=== PATIENT | male | born 1995 | race Caucasian/White ===

== ENCOUNTER 2017-09-14 13:44 | Emergency (ER) | payer BC ==
[2017-09-14 14:47] VITALS: BP 113/69
--- NOTE | 2017-09-14 15:17 | UC ---
Respiratory Complaint HPI - HPI Summary HPI Summary: 22 y/o male presents to the urgent care accompany by mother c/o productive cough w/ green phlegms for the past 9 days. Pt reports he has Hx of asthma and he has been using his inhaler since he started wheezing for the past 3 days. Pt had low grade fever at the beginning of symptoms. Lately he feels hot w / chills, but has not taken his temp. Pt denies SOTELO, rash, nasal congestion, SOB , chest pain, abdominal pain, N/V/D. - History of Current Complaint Chief Complaint: UCRespiratory Stated Complaint: COUGH Time Seen by Provider: 09/14/17 15:11 Hx Obtained From: Patient Onset/Duration: Gradual Onset, Lasting Days - 9 daysw, Still Present, Worse Since - 3 days Timing: Intermittent Episodes Severity Initially: Mild Severity Currently: Moderate Pain Intensity: 0 Pain Scale Used: 0-10 Numeric Character: Cough: Productive, Sputum Description: - green Aggravating Factors: Recumbent Position Alleviating Factors: Bronchodilator Associated Signs And Symptoms: Positive: Dyspnea - mild, Chills, Wheezing, Nasal Congestion - mild Related History: Seasonal Allergies - Risk Factors Pulmonary Embolism Risk Factors: Negative Cardiac Risk Factors: Negative Pseudomonas Risk Factors: Negative Tuberculosis Risk Factors: Negative - Allergies/Home Medications Allergies/Adverse Reactions: Allergies Allergy/AdvReac Type Severity Reaction Status Date / Time bupropion [From Wellbutrin] Allergy Rash Verified 09/14/17 14:44 cats and dogs Allergy Congestion Uncoded 11/21/15 16:59 PMH/Surg Hx/FS Hx/Imm Hx Previously Healthy: Yes Respiratory History: Asthma Other History Of: Negative For: HIV, Hepatitis B, Hepatitis C, Anticoagulant Therapy - Surgical History Surgical History: None - Family History Known Family History: Positive: Diabetes, Other - no fmh of disorders of ENT, no current FMhx of ST Negative: Cardiac Disease, Hypertension - Social History Occupation: Student Lives: With Family Alcohol Use: Rare Substance Use Type: None Substance Use Comment - Amount & Last Used: Marijuana early September 2015 Smoking Status (MU): Heavy Every Day Tobacco Smoker Type: Cigarettes Amount Used/How Often: ~1/2 PPD Length of Time of Smoking/Using Tobacco: 6 Years Have You Smoked in the Last Year: Yes Household Exposure Type: Cigarettes - Immunization History Most Recent Influenza Vaccination: January 2014 Most Recent Tetanus Shot: 11/29/11 Vaccination Up to Date: Yes Review of Systems Constitutional: Negative Skin: Negative Eyes: Negative ENT: Nasal Discharge, Sinus Congestion Respiratory: Shortness Of Breath - mild at times, Cough - productive, Other - wheezing Cardiovascular: Negative Gastrointestinal: Negative Genitourinary: Negative Motor: Negative Neurovascular: Negative Musculoskeletal: Negative Neurological: Negative Psychological: Negative Is Patient Immunocompromised?: No All Other Systems Reviewed And Are Negative: Yes Physical Exam - Summary Physical Exam Summary: Vital Signs Reviewed: Yes General: well developed, well nourished male sitting in the examining table w/o any apparent distress Eyes: Positive: Conjunctiva Clear - PERRLA, EOMI, fundi grossly normal ENT: Positive: Normal ENT inspection, Hearing grossly normal, Pharynx normal, Nasal congestion - edematous and erythematous nasal mucosa, Nasal drainage - yellowish drainage, TMs normal. Negative: Tonsillar swelling, Tonsillar exudate Neck: Positive: Supple, Nontender, No Lymphadenopathy Respiratory: no orthopnea or dyspnea. Able to speak in full sentences, no retractions or accessory muscle use, no tripod position, stridor, or head bobbing. Positive breath sounds, Diffuse scattered wheezes w/ rhonchi , no rales, or crackles Cardiovascular: Positive: RRR, No Murmur, Pulses Normal, Brisk Capillary Refill Abdomen Description: Positive: Nontender, No Organomegaly, Soft. Negative: CVA Tenderness (R), CVA Tenderness (L) Bowel Sounds: Positive: Present Musculoskeletal Exam: Normal Musculoskeletal: Positive: Strength Intact, ROM Intact, No Edema Neurological Exam: Normal Psychological Exam: Normal Skin Exam: Normal Triage Information Reviewed: Yes Vital Signs: Initial Vital Signs Temp 98 F 09/14/17 14:40 Pulse 65 09/14/17 14:40 Resp 18 09/14/17 14:40 BP 113/69 09/14/17 14:40 Pulse Ox 100 09/14/17 14:40 UC Diagnostic Evaluation - Laboratory O2 Sat by Pulse Oximetry: 100 Respiratory Course/Dx - Course Course Of Treatment: 22 y/o male presents to the urgent care accompany by mother c/o productive cough w/ green phlegms for the past 9 days. Pt reports he has Hx of asthma and he has been using his inhaler since he started wheezing for the past 3 days. Pt had low grade fever at the beginning of symptoms. Lately he feels hot w/ chills, but has not taken his temp. Pt denies SOTELO, rash, nasal congestion, SOB, chest pain, abdominal pain, N/V/D.Hx obtained. Pt w/ Asthma exacerbation due to bronchitis. LUNGS: Diffuse scattered wheezes, no rales or rhonchi, good air entry B/L. productive cough w/ green sputum. Chest X -ray ordered: impression: No acute cardiopulmonary disease observed. Albuterol Treatment given to patient w/ Prednisone PO . Patient tolerated well treatment and lungs improved, mild wheezing only in posterior RT lung, O2 sat 100%. Patient prescribed Z-kenny and Prednisone PO , as directed below. The patient was recommended to increase fluid intake. Take medications as recommended and patient advised to continue w/ albuterol treatments TID. Mother and Patient recommended to return to the clinic or go to the nearest ER if symptoms do not improve or worsen. Mother and Patient understood and agree w/ plan of care - Differential Dx/Diagnosis Differential Diagnosis/HQI/PQRI: Asthma, Bronchitis, Lower Resp Infection, Sinusitis, Other - pneumonia Provider Diagnoses: 1- Acute asthma exacerbation due to bronchitis Discharge - Sign-Out/Discharge Documenting (check all that apply): Discharge/Admit/Transfer - D/C home - Discharge Plan Condition: Stable Disposition: HOME Prescriptions: Albuterol 2.5MG/3ML (0.083%)* [Ventolin 2.5 MG/3 ML NEB.MERARI*] 2.5 mg INH Q6H PRN #1 box PRN Reason: Wheezing Azithromyxin KENNY (NF) [Z-Kenny (Zithromax) 250 mg tabs #6] 2 tab PO .TODAY, THEN 1 DAILY #6 tab predniSONE TAB* [Deltasone 20 MG TAB*] 20 mg PO DAILY #8 tab Patient Education Materials: Asthma (ED), Acute Bronchitis (ED) Referrals: Lula Bravo MD [Primary Care Provider] - 3 Days Additional Instructions: 1-Please take full course of antibiotic to avoid resistance. 2-Take Prednisone PO as directed starting tomorrow. First dose given today. Due the albuterol nebulizer treatments as directed. 3- If symptoms do not improve or worsen or your develop SOB with fever and severe wheezing please go immediately to the ER further evaluation and treatment. 4- F/u with your PCP in 3 days for further management on your Asthma - Billing Disposition and Condition Condition: STABLE Disposition: Home
[2017-09-14] MEDS ORDERED: predniSONE TAB* 20 MG PO ONE (15:28)
[2017-09-14] MEDS ORDERED: Albuterol 2.5 MG/3 ML NEB.SOL* (0.083%) INH ONE (15:28)
--- NOTE | 2017-09-14 16:04 | RAD ---
INDICATION: Elective cough, shortness of breath and wheezing COMPARISON: Chest x-ray dated December 27, 2013 TECHNIQUE: PA and lateral views of the chest were obtained. FINDINGS: The heart and mediastinum are normal in size and contour. The lungs are grossly clear. There is no evidence of large pleural effusion. Visualized bones are normal for the patient's age. There is no radiographic evidence of free air beneath the diaphragm IMPRESSION: No radiographic evidence of acute cardiopulmonary disease.
== END 2017-09-14 16:32 | disposition home or self-care (01) ==
LOC: UCCORT 13:44
DX: J45.901 Unspecified asthma with (acute) exacerbation (principal); J40 Bronchitis, not specified as acute or chronic; F17.210 Nicotine dependence, cigarettes, uncomplicated; Z88.8 Allergy status to other drugs, medicaments and biological substances
CPT/HCPCS: 71046; 99212; G0463; J7512

== ENCOUNTER 2018-08-07 10:07 | Emergency (ER) | payer BC ==
[2018-08-07 11:33] VITALS: BP 127/75
--- NOTE | 2018-08-07 11:40 | UC ---
Respiratory Complaint HPI - HPI Summary HPI Summary: Patient presents to urgent care reporting that he's had progressive cough the last 3-4 days. Patient states he coughs up yellow sputum. Patient stats at times feels short of breath related to the coughing. Patient with mild head congestion. Patient's been taking Mucinex as well as cough medication with been helping. Patient has a nebulizer at home that is generally uses family. Patient has been using upwards worked well. Patient ran out of solution last night. Patient denies fevers or chills. Patient denies nausea vomiting. Patient states he does feel slightly tired with a decreased appetite. No rashes. Medications reviewed this visit. Patient does smoke tobacco. h/o asthma, - History of Current Complaint Chief Complaint: UCRespiratory Stated Complaint: COUGH Time Seen by Provider: 08/07/18 11:27 Hx Obtained From: Patient Onset/Duration: Gradual Onset Severity Currently: None Pain Intensity: 0 - Allergies/Home Medications Allergies/Adverse Reactions: Allergies Allergy/AdvReac Type Severity Reaction Status Date / Time bupropion [From Wellbutrin] Allergy Rash Verified 08/07/18 11:27 cat dander Allergy Congestion Verified 08/07/18 11:27 dog dander Allergy Congestion Verified 08/07/18 11:27 Home Medications: Home Medications Fluticasone NASAL * [Flonase *] 1 spray BOTH NARES DAILY PRN 08/07/18 [History Confirmed 08/07/18] PMH/Surg Hx/FS Hx/Imm Hx Previously Healthy: Yes Respiratory History: Asthma, Bronchitis Other History Of: Negative For: HIV, Hepatitis B, Hepatitis C, Anticoagulant Therapy - Surgical History Surgical History: None - Family History Known Family History: Positive: Diabetes, Other - no fmh of disorders of ENT, no current FMhx of ST, Non-Contributory Negative: Cardiac Disease, Hypertension - Social History Occupation: Employed Full-time Lives: With Family Alcohol Use: Occasionally Substance Use Type: Marijuana Substance Use Comment - Amount & Last Used: "Every once in a while" Smoking Status (MU): Heavy Every Day Tobacco Smoker Type: Cigarettes Amount Used/How Often: > 1/2 PPD Length of Time of Smoking/Using Tobacco: Since Age 16 Have You Smoked in the Last Year: Yes Household Exposure Type: Cigarettes - Immunization History Most Recent Influenza Vaccination: January 2014 Most Recent Tetanus Shot: 11/29/11 Vaccination Up to Date: Yes Review of Systems All Other Systems Reviewed And Are Negative: Yes Constitutional: Positive: Fatigue ENT: Positive: Sinus Congestion Respiratory: Positive: Cough Cardiovascular: Positive: Negative Gastrointestinal: Positive: Negative Physical Exam - Summary Physical Exam Summary: Vital Signs Reviewed: Yes A+Ox3, no distress Eyes: Conjunctiva Clear, DOMINIC. EOM intact and full ENT: Hearing grossly normal TM x 2 clear, turbinates inflammed, +PND, no exudate, mmoist, uvula midline, no exudate, no erythema Neck: Positive: Supple Respiratory: Positive: intermittent cough, + exp wheeze diffuse, no accessory muscle + BS throughout Cardiovascular: RRR nl s1, s2 no m/r CBT <2 sec abd soft + BS nt/nd no guarding, no distension Musculoskeletal Exam: LUTHER x 4 without difficulty Strength Intact, ROM Intact Neurological: Positive: Alert, + sensation throughout Psychological: Positive: Normal Response To Family Skin: Positive: no rash, no ecchymosis Triage Information Reviewed: Yes Vital Signs: Initial Vital Signs Temp 98.5 F 08/07/18 11:24 Pulse 62 08/07/18 11:24 Resp 16 08/07/18 11:24 BP 127/75 08/07/18 11:24 Pulse Ox 98 08/07/18 11:24 Re-Evaluation - Re-Evaluation First Eval Re-Evaluation Time: 12:33 Change: Improved Comment: improved following neb. still mild wheeze. Will give MDI/refill albut neb/pred/z pack (smoker, asthma). f/u with pcp Respiratory Course/Dx - Course Course Of Treatment: Patient presents to urgent care reporting progressive cough for 3-4 days. Patient with wheezing. Patient has albuterol at home but has run out. Patient states she's been coughing up some yellow sputum. Patient does have smoking history. Vital signs are stable. Patient with sinus congestion postnasal drip and scattered expiratory wheezing. We'll check a DuoNeb. Reassess. Likely place pt on prednisone MDI with continued supportive care. Patient agreement with plan. - Differential Dx/Diagnosis Provider Diagnosis: Upper respiratory disease Discharge - Sign-Out/Discharge Documenting (check all that apply): Patient Departure All imaging exams completed and their final reports reviewed: No Studies - Discharge Plan Condition: Stable Disposition: HOME Prescriptions: Albuterol 2.5MG/3ML (0.083%)* [Ventolin 2.5 MG/3 ML NEB.MERARI*] 2.5 mg INH Q4H # 30 neb.merari Albuterol HFA INHALER* [Ventolin HFA Inhaler*] 2 puff INH Q4H PRN #1 mdi PRN Reason: wheeze Azithromycin TAB* [Zithromax TAB (Z-PRANAY) 250 mg #6 tabs] 2 tab PO .TODAY, THEN 1 DAILY #1 pranay predniSONE TAB* [Deltasone TAB*] 50 mg PO DAILY #5 tab Patient Education Materials: Acute Bronchitis (ED) Referrals: No Primary Care Phys,NOPCP [Primary Care Provider] - Additional Instructions: -Take antibiotics and prednisone exactly as prescribed until gone -Use your albuterol puffer - 2 puffs every 4 hours for the next 2 days - then as needed -Stay well hydrated - avoid excess caffeine and all alcohol - eat regular, healthy meals - - humidify the air in the room where you sleep - boil water, run a hot steam shower, vaporizer, cups of water by heat register - okay to take over the counter decongestant and cough medication -- These infections are spread by secretions - do NOT share eating or drinking utensils - clean items you share with other people such as cell phones, computer mouse, TV remote, computer tablets,etc.. Once you have been antibiotics for 2 days, change your toothbrush and your pillowcase. -Contact your doctor to arrange a follow-up appointment this week. Call your doctor, return here or go to the emergency department with any questions or concerns - Billing Disposition and Condition Condition: STABLE Disposition: Home
[2018-08-07] MEDS ORDERED: Albuterol/Ipratropium NEB.SOL* Albuterol 2.5 MG/Ipratropium 0.5 MG 3 ML INH ONE (11:59)
== END 2018-08-07 12:40 | disposition home or self-care (01) ==
LOC: UCCORT 10:07
DX: J39.9 Disease of upper respiratory tract, unspecified (principal); F17.210 Nicotine dependence, cigarettes, uncomplicated; J45.909 Unspecified asthma, uncomplicated; Z91.09 Other allergy status, other than to drugs and biological substances; Z88.8 Allergy status to other drugs, medicaments and biological substances
CPT/HCPCS: 99212; A9270-GY; G0463

== ENCOUNTER 2018-11-17 13:55 | Emergency (ER) | payer BC ==
[2018-11-17 14:27] VITALS: BP 121/65
--- NOTE | 2018-11-17 14:54 | UC ---
Respiratory Complaint HPI - HPI Summary HPI Summary: C/O sore throat, nasal congestion and coughing with coughing fits starting this morning. No sinus or ear pain. No SOB. Also c/o mildly pruritic rash under the armpits now spreading across the chest, shoulders and back. - History of Current Complaint Chief Complaint: UCRespiratory Stated Complaint: COUGH Time Seen by Provider: 11/17/18 14:43 Hx Obtained From: Patient Onset/Duration: Sudden Onset, Lasting Days, Worse Since - onset Severity Initially: Mild Severity Currently: Moderate Pain Intensity: 0 Character: Cough: Nonproductive - bronchospastic Alleviating Factors: Nothing Associated Signs And Symptoms: Positive: URI, Nasal Congestion Related History: Seasonal Allergies - Allergies/Home Medications Allergies/Adverse Reactions: Allergies Allergy/AdvReac Type Severity Reaction Status Date / Time bupropion [From Wellbutrin] Allergy Rash Verified 11/17/18 14:27 cat dander Allergy Congestion Verified 11/17/18 14:27 dog dander Allergy Congestion Verified 11/17/18 14:27 PMH/Surg Hx/FS Hx/Imm Hx Previously Healthy: Yes Other History Of: Negative For: HIV, Hepatitis B, Hepatitis C, Anticoagulant Therapy - Surgical History Surgical History: None - Family History Known Family History: Positive: Diabetes, Other - no fmh of disorders of ENT, no current FMhx of ST, Non-Contributory Negative: Cardiac Disease, Hypertension - Social History Occupation: Employed Full-time Lives: With Family Alcohol Use: Occasionally Substance Use Type: Marijuana Substance Use Comment - Amount & Last Used: 1-2 times per day Smoking Status (MU): Heavy Every Day Tobacco Smoker Type: Cigarettes Amount Used/How Often: 1 PPD Length of Time of Smoking/Using Tobacco: Since Age 16 Have You Smoked in the Last Year: Yes Household Exposure Type: Cigarettes - Immunization History Most Recent Influenza Vaccination: January 2014 Most Recent Tetanus Shot: 11/29/11 Vaccination Up to Date: Yes Review of Systems All Other Systems Reviewed And Are Negative: Yes Constitutional: Positive: Fatigue Skin: Positive: Rash ENT: Positive: Sore Throat, Nasal Discharge Respiratory: Positive: Cough Physical Exam Triage Information Reviewed: Yes Appearance: No Pain Distress, Ill-Appearing, Thin Vital Signs: Initial Vital Signs Temp 99.5 F 11/17/18 14:18 Pulse 65 11/17/18 14:18 Resp 16 11/17/18 14:18 BP 121/65 11/17/18 14:18 Pulse Ox 100 11/17/18 14:18 Vital Signs Reviewed: Yes Eyes: Positive: Conjunctiva Clear ENT: Positive: Pharyngeal erythema, Nasal congestion, TMs normal Neck exam: Normal Respiratory: Positive: Lungs clear, Wheezing - expiratory wheeze just with coughing. Cardiovascular Exam: Normal Musculoskeletal Exam: Normal Neurological Exam: Normal Psychological Exam: Normal Skin: Positive: Rashes - dry scaling hyperpigmented circular rash confluent in the axilla, upper chest into the shoulders. Also in the upper back Respiratory Course/Dx - Differential Dx/Diagnosis Differential Diagnosis/HQI/PQRI: Asthma, Lower Resp Infection, Sinusitis Provider Diagnosis: Upper respiratory infection with cough and congestion, Acute bronchospasm, Tinea versicolor Discharge - Sign-Out/Discharge Documenting (check all that apply): Patient Departure All imaging exams completed and their final reports reviewed: No Studies - Discharge Plan Condition: Stable Disposition: HOME Prescriptions: predniSONE TAB* [Deltasone 20 MG TAB*] 60 mg PO DAILY #18 tab Selenium Sulfide 4 ml TOPICAL DAILY #120 ml Patient Education Materials: Upper Respiratory Infection (DC), Wheezing (ED), Prednisone (By mouth), Tinea Versicolor (ED) Referrals: No Primary Care Phys,NOPCP [Primary Care Provider] - - Billing Disposition and Condition Condition: STABLE Disposition: Home
== END 2018-11-17 15:13 | disposition home or self-care (01) ==
LOC: UCCORT 13:55
DX: J06.9 Acute upper respiratory infection, unspecified (principal); J98.01 Acute bronchospasm; B36.0 Pityriasis versicolor; F17.210 Nicotine dependence, cigarettes, uncomplicated
CPT/HCPCS: 99212; G0463

== ENCOUNTER 2018-11-22 18:25 | Emergency (ER) | payer BC ==
[2018-11-22 18:40] VITALS: BP 118/63
--- NOTE | 2018-11-22 18:53 | UC ---
Respiratory Complaint HPI - HPI Summary HPI Summary: 23 year old male presents requesting a refill of his albuterol for his nebulizer. He was seen 11/17/18 here and diagnosed with URI, prescribed prednisone. He states he is getting better with his symptoms, but his albuterol for his nebulizer has run out. He was unable to have his PCP refill the medication so came here for a refill. Carl chest pain, sob, fever nor chills. - History of Current Complaint Chief Complaint: UCMedRefill Stated Complaint: Med refill Time Seen by Provider: 11/22/18 18:35 Hx Obtained From: Patient Pain Intensity: 0 Aggravating Factors: Allergens Associated Signs And Symptoms: Positive: Wheezing - at times. Negative: Dyspnea , Fever, Chills, Pleuritic Chest Pain, Hemoptysis - Risk Factors Pulmonary Embolism Risk Factors: Negative Cardiac Risk Factors: Negative Pseudomonas Risk Factors: Negative Tuberculosis Risk Factors: Negative - Allergies/Home Medications Allergies/Adverse Reactions: Allergies Allergy/AdvReac Type Severity Reaction Status Date / Time bupropion [From Wellbutrin] Allergy Rash Verified 11/17/18 14:27 cat dander Allergy Congestion Verified 11/17/18 14:27 dog dander Allergy Congestion Verified 11/17/18 14:27 Home Medications: Home Medications Desloratadine 2.5 mg PO DAILY 11/22/18 [History Confirmed 11/22/18] PMH/Surg Hx/FS Hx/Imm Hx Previously Healthy: Yes - other than recent URI Respiratory History: Other - recent URI Other History Of: Negative For: HIV, Hepatitis B, Hepatitis C, Anticoagulant Therapy - Surgical History Surgical History: None - Family History Known Family History: Positive: Diabetes, Other - no fmh of disorders of ENT, no current FMhx of ST, Non-Contributory Negative: Cardiac Disease, Hypertension - Social History Alcohol Use: Occasionally Substance Use Type: Marijuana Substance Use Comment - Amount & Last Used: 1-2 times per day Smoking Status (MU): Heavy Every Day Tobacco Smoker Type: Cigarettes Amount Used/How Often: 1 PPD Length of Time of Smoking/Using Tobacco: Since Age 16 Have You Smoked in the Last Year: Yes Household Exposure Type: Cigarettes - Immunization History Most Recent Influenza Vaccination: January 2014 Most Recent Tetanus Shot: 11/29/11 Vaccination Up to Date: Yes Review of Systems All Other Systems Reviewed And Are Negative: Yes Constitutional: Negative: Fever, Chills Skin: Positive: Rash - tinea versicolor is improving with treatement. Eyes: Negative: Blurred Vision, Diplopia ENT: Negative: Epistaxis, Sore Throat, Sinus Pain/Tenderness Respiratory: Positive: Cough. Negative: Shortness Of Breath, Other Cardiovascular: Negative: Palpitations Gastrointestinal: Negative: Abdominal Pain, Vomiting, Diarrhea, Nausea Genitourinary: Negative: Dysuria Musculoskeletal: Negative: Decreased ROM Neurological: Negative: Headache, Weakness Is Patient Immunocompromised?: No Physical Exam Triage Information Reviewed: Yes Appearance: Well-Appearing, No Pain Distress, Well-Nourished Vital Signs: Initial Vital Signs Temp 98.6 F 11/22/18 18:35 Pulse 61 11/22/18 18:35 Resp 18 11/22/18 18:35 BP 118/63 11/22/18 18:35 Pulse Ox 96 11/22/18 18:35 Vital Signs Reviewed: Yes Eyes: Positive: Conjunctiva Clear ENT: Positive: Normal ENT inspection Neck: Positive: Supple, Nontender, No Lymphadenopathy Respiratory: Positive: Chest non-tender, Lungs clear, Normal breath sounds, No respiratory distress. Negative: Crackles, Rhonchi, Wheezing Cardiovascular: Positive: RRR, No Murmur Abdomen Description: Positive: Nontender, Soft Musculoskeletal: Positive: Strength Intact Neurological: Positive: Alert Skin: Positive: Other - tinea versicolor improving. Respiratory Course/Dx - Differential Dx/Diagnosis Provider Diagnosis: Upper respiratory infection Discharge - Sign-Out/Discharge Documenting (check all that apply): Patient Departure All imaging exams completed and their final reports reviewed: No Studies - Discharge Plan Condition: Stable Disposition: HOME Prescriptions: Albuterol 2.5MG/3ML (0.083%)* [Ventolin 2.5 MG/3 ML NEB.MERARI*] 2.5 mg INH Q6H PRN #1 box PRN Reason: Wheezing Patient Education Materials: Upper Respiratory Infection (ED) Referrals: No Primary Care Phys,NOPCP [Primary Care Provider] - Additional Instructions: Take all your medication prescribed. Follow-up with your primary care physician or Urgent Care if symptoms persist or worsen. - Billing Disposition and Condition Condition: STABLE Disposition: Home
== END 2018-11-22 19:03 | disposition home or self-care (01) ==
LOC: UCCORT 18:25
DX: Z51.89 Encounter for other specified aftercare (principal); J06.9 Acute upper respiratory infection, unspecified; Z76.0 Encounter for issue of repeat prescription; F17.210 Nicotine dependence, cigarettes, uncomplicated
CPT/HCPCS: 99212; G0463